=== PATIENT | female | born 1965 | race Caucasian/White ===

== ENCOUNTER 2020-07-24 14:25 | Outpatient (REF) | payer OTHER, SELFPAY ==
[2020-07-24 14:45] LABS: COVID-19 Test Negative (Negative)
== END 2020-07-24 14:26 | disposition home or self-care (01) ==
LOC: HO.LAB 14:25
PROVIDERS: Visit Provider Internal Medicine
DX: Z20.828 Contact with and (suspected) exposure to other viral communicable diseases (principal)
CPT/HCPCS: 87635

== ENCOUNTER → 2022-07-20 13:14 | Outpatient (RCR) | payer OTHER, SELFPAY | END | disposition home or self-care (01) | LOC: HO.EMPCOV 09-09 13:10 | PROVIDERS: Visit Provider Internal Medicine | DX: Z20.828 Contact with and (suspected) exposure to other viral communicable diseases (principal) ==

== ENCOUNTER 2023-12-07 06:11 | Day surgery (SDC) | payer OTHER, SELFPAY ==
[2023-12-05 11:50] VITALS: BMI 22.9
--- NOTE | 2023-12-05 14:37 | P.CONAN_ITS ---
Documented by User: Dayan Waller NP 12/05/23 14:37 HPI - Anesthesia Eval Consult details Narrative: 58yo F for Colonoscopy FOR[facility]LY [facility], [facility] Past Medical History Medical History Osteoporosis HTN (hypertension) Surgical History Surgical History Hx of tonsillectomy H/O colonoscopy Social History Social History Household Members: Spouse Patient Tobacco Use Status: Former Tobacco user Tobacco use type: Cigarette Meds Allergies Allergy/AdvReac Type Severity Reaction Status Date / Time lisinopril AdvReac Mild Cough Verified 12/07/23 06:34 Home Medications Medication Instructions Recorded Confirmed Last Taken Type alendronate 70 mg tablet 70 mg PO QWEEK 12/05/23 12/05/23 Unknown History losartan 50 mg tablet 50 mg PO DAILY 12/05/23 12/05/23 12/07/23 History multivitamin 1 tab PO DAILY 12/05/23 12/05/23 Unknown History Exam Height,Weight and Vital Signs: Height 5 ft 6 in Weight 64.41 kg Assessment and Plan Assessment Anesthesia Assessment: Chart Reviewed Documented by User: Luna Cabrales MD 12/07/23 07:26 [facility], [facility] Past Medical History Medical History Osteoporosis HTN (hypertension) Surgical History Surgical History Hx of tonsillectomy H/O colonoscopy History of Problems with Anesthesia: No Social History Social History Household Members: Spouse Patient Tobacco Use Status: Former Tobacco user Tobacco use type: Cigarette Meds Allergies Allergy/AdvReac Type Severity Reaction Status Date / Time lisinopril AdvReac Mild Cough Verified 12/07/23 06:34 Home Medications Medication Instructions Recorded Confirmed Last Taken Type alendronate 70 mg tablet 70 mg PO QWEEK 12/05/23 12/05/23 Unknown History losartan 50 mg tablet 50 mg PO DAILY 12/05/23 12/05/23 12/07/23 History multivitamin 1 tab PO DAILY 12/05/23 12/05/23 Unknown History Exam Airway Mallampati Class: II TM Dist: >3cm Neck ROM: Full Loose/Missing/Broken Teeth: No Heart: RRR Lungs: CTA Assessment and Plan Assessment Anesthesia Assessment: Anesthesia Plan Discussed Final Anesthetic Review History of Problems with Anesthesia: No NPO: Yes ASA Class: II Final Preanesthetic Review: Meds/Allgs Chart Reviewed, Consent Obtained/Reviewed and Anes Risks/Benef Reviewed Patient Risk: Low Procedure Risk: Low Anesthetic Plan Anesthetic Plan: MAC: Disposition: Standard PACU
[2023-12-07 06:21] VITALS: BMI 22.9
[2023-12-07] MEDS: Lactated Ringers 1,000 ML 100 ML IVCONT (06:28)
[2023-12-07 06:34] VITALS: BP 132/80; PULSE 77; RESP 18; TEMP 36.6; O2SAT 100
--- NOTE | 2023-12-07 07:20 | P.HPSUR_ITS ---
Pre-Procedural Eval Section A - 24 Hr Update-Section A only Date of Service: 12/07/23 Section B - Complete if H&P > 30 days Chief Complaint: Encounter for screening for malignant neoplasm of Details of Present Illness: see h&p no changes Relevant Family History (Specify if Yes): No Relevant Social History: None Present Medications: see Short Stay Collaborative assessment Medical History: No relevant PMH History of Previous Operations: No relevant previous surgery Allergies: Allergies Allergy/AdvReac Type Severity Reaction Status Date / Time lisinopril AdvReac Mild Cough Verified 12/07/23 06:34 Review of Systems Sugical H&P ROS: Negative: Constitution, Cardiovascular, Respiratory, Neurological, Psychiatric, Hem-Onc, Allergic/Immunologic, Gastrointestinal, Genitourinary, Musculoskeletal, Integumentary, Endocrine and Eyes/Ears/N ose/Throat Exam Surgical H&P Exam: Normal: HEENT, Normal: Heart, Normal: Lungs, Normal: Extremities, Normal: Abdomen, Normal: Skin and Normal: Neurological Plan Diagnosis/Plan: Unchanged I have reviewed the history and physical and performed a pertinent physical examination on my patient. No changes have occurred unless specified. Time Spent With Patient Time: Total time managing care of this patient today ____ minutes.
[2023-12-07 08:12] VITALS: BP 98/51; PULSE 72; RESP 16; TEMP 36.4; O2SAT 100
[2023-12-07 08:17] VITALS: BP 113/69
[2023-12-07 08:27] VITALS: BP 123/71; PULSE 65; RESP 16; O2SAT 100
[2023-12-07 08:37] VITALS: BP 119/71; PULSE 63; RESP 16; TEMP 36.2; O2SAT 100
--- NOTE | 2023-12-07 09:11 | OP_ITS ---
DATE OF SERVICE: 12/07/2023 SURGEON: Hunter Lopez MD INDICATIONS: Colon cancer screening and prior history of adenomatous colon polyps. PREOPERATIVE DIAGNOSIS: POSTOPERATIVE DIAGNOSIS: PROCEDURE PERFORMED: Colonoscopy to the terminal ileum with snare polypectomy. ESTIMATED BLOOD LOSS: COMPLICATIONS: ANESTHESIA: Monitored anesthesia care. ASSISTANTS: SPECIMENS: DESCRIPTION OF PROCEDURE: A history and physical was performed. The risks and benefits of the procedure were explained to the patient. Informed consent was obtained. The patient was placed in the left lateral decubitus position. A digital rectal exam was performed and was found to be normal. The Olympus pediatric video colonoscope was introduced into the rectum and advanced to the cecum. The cecum was identified by transillumination, palpation, and identification of the ileocecal valve. Examination was performed. The scope was removed. She tolerated the procedure well and was returned to recovery area in stable condition. FINDINGS: The terminal ileum was not examined. The visualized colonic mucosa was within normal limits without evidence of masses or ulcers. The quality of the prep was good. In the cecum were 2 polyps. The first measured 6 mm and was removed with a cold snare. The second measured approximately 10 mm and was removed with a hot snare. No other polyps were identified. There was moderate sigmoid diverticulosis. Retroflexed examination showed some small to moderate-sized internal hemorrhoids. IMPRESSION: Colon polyps. RECOMMENDATION: Follow up with the biopsy results. MD CHIOMA Garcia/TANIA / [id number]
--- NOTE | 2023-12-07 12:08 | PM.OP ---
Brief Operative Note Date of Service: 12/07/23 Pre-op diagnosis: screening Post-op diagnosis: same Procedure: colonoscopy Surgeon: Hunter Lopez MD Anesthesia: MAC Was an Composing Room Machinist Apprentice used for this Procedure?: No Estimated blood loss (mL): 2 Pathology: other Condition: stable Disposition: PACU
== END 2023-12-07 08:45 | disposition home or self-care (01) ==
PROVIDERS: PCP Family Medicine; Visit Provider Internal Medicine Gastroenterology
PROC: 0DJD8ZZ Inspection of Lower Intestinal Tract, Via Natural or Artificial Opening Endoscopic (ICD-10-PCS; CPT 45378; principal; 2023-12-07 07:30)
DX: Z12.11 Encounter for screening for malignant neoplasm of colon (principal); Z86.010 Personal history of colon polyps; D12.0 Benign neoplasm of cecum; K57.30 Diverticulosis of large intestine without perforation or abscess without bleeding; K64.8 Other hemorrhoids; I10 Essential (primary) hypertension; M81.0 Age-related osteoporosis without current pathological fracture; Z79.899 Other long term (current) drug therapy; Z88.8 Allergy status to other drugs, medicaments and biological substances; Z87.891 Personal history of nicotine dependence
CPT/HCPCS: 45385; 88305; J2704